=== PATIENT | female | born 1960 | race African-American/Black ===

== ENCOUNTER 2017-05-28 10:20 | Outpatient (CLI) | payer BC ==
[2017-05-28 10:55] LABS: HEMATOCRIT 30.3 % (36.0-47.0); HEMOGLOBIN 9.3 g/dL (12.0-15.5); MEAN CORPUSCULAR HEMOGLOBIN 25.1 pg (27.0-33.4); MEAN CORPUSCULAR HGB CONC 30.5 g/dL (32.0-36.0); MEAN CORPUSCULAR VOLUME 82 fl (80-97); PLATELET COUNT 571 10^3/uL (150-450); RED BLOOD COUNT 3.69 10^6/uL (3.72-5.28); RED CELL DISTRIBUTION WIDTH 15.4 % (11.5-14.0)
== END 2017-05-28 11:29 | disposition home or self-care (01) ==
LOC: LAB 10:20 → 2S 10:25 → LAB 11:29
PROVIDERS: ATTEND Internal Medicine
DX: D64.9 Anemia, unspecified (principal); Z53.8 Procedure and treatment not carried out for other reasons

== ENCOUNTER 2018-08-28 22:23 | Emergency (ER) | payer OTHER, BC ==
[2018-08-29] MEDS ORDERED: OXYCODONE-ACETAMINOPHEN 5-325 MG TABLET PO ONE (00:47)
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
[2018-08-29 02:36] VITALS: BP 140/78
== END 2018-08-29 02:34 | disposition home or self-care (01) ==
LOC: ER 22:23
DX: S46.911A Strain of unspecified muscle, fascia and tendon at shoulder and upper arm level, right arm, initial encounter (principal); S20.211A Contusion of right front wall of thorax, initial encounter; S70.11XA Contusion of right thigh, initial encounter; V87.7XXA Person injured in collision between other specified motor vehicles (traffic), initial encounter
CPT/HCPCS: 71046; 99283

== ENCOUNTER → 2020-03-24 | Outpatient (CLI) | payer BC ==
[~2020-03-24] MED LIST: FERRIC CARBOXYMALTOSE 750 MG in NORMAL SALINE 250 ML IV PRN
[2020-03-24 12:37] VITALS: BP 129/66
== END ==
LOC: II 11:45
PROVIDERS: ATTEND Internal Medicine
DX: D50.0 Iron deficiency anemia secondary to blood loss (chronic) (principal)
CPT/HCPCS: 96374; J7050; J1439